=== PATIENT | male | born 1965 | race Caucasian/White ===

== ENCOUNTER 2019-11-10 01:19 | Observation (INO) ==
[2019-11-10 02:00] LABS: Bilirubin,Urine Negative (Negative); Blood,Urine Negative (Negative); Clarity,Urine Cloudy (Clear); Color,Urine Dark Yellow (Yellow); Glucose,Urine (UA) Normal (Normal); Ketones,Urine Negative (Negative); Leukocyte Esterase,Urine Large (Negative); Nitrite,Urine Negative (Negative); Protein,Urine 30 mg/dL (Neg-Trace); Specific Gravity,Urine 1.025 (1.010-1.025); Urobilinogen,Urine Normal (Normal)
[2019-11-10 02:01] LABS: Bacteria,Urine Many per hpf (None-Few); Hyaline Casts,Urine Moderate per lpf (None-Few); Squamous Epithelial Cell,Urine Moderate per lpf (None-Few)
[2019-11-10 02:09] LABS: Basophils % 0.5 %; Eosinophils # 0.1 K/mcL (0.0-0.6); Eosinophils % 0.6 %; Hematocrit 38.1 % (37.5-50.1); Hemoglobin 12.7 g/dL (12.9-16.9); Immature Granulocytes % 1.7 % (0-4); Lymphocytes % 11.7 %; Mean Corpuscular HGB Conc 33.3 g/dL (31.6-35.5); Mean Corpuscular Hemoglobin 29.1 pg (28.0-33.3); Mean Corpuscular Volume 87.2 fL (83.0-100.0); Mean Platelet Volume 9.1 fL (9.4-12.4); Monocytes # 1.1 K/mcL (0.0-1.3); Monocytes % 13.1 %; Neutrophils # 6.1 K/mcL (1.6-8.9); Platelet Count 187 K/mcL (140-400); Red Blood Count 4.37 M/mcL (4.19-5.50); Segmented Neutrophils % 72.4 %; White Blood Count 8.5 K/mcL (4.3-11.1)
[2019-11-10 02:17] LABS: RBC,Urine 0-3 per hpf (0-3); WBC,Urine 30-50 per hpf (0-3)
[2019-11-10 02:22] LABS: Alanine Aminotransferase 17 Units/L (7-52); Albumin 3.4 g/dL (3.5-5.7); Alkaline Phosphatase 84 Units/L (34-104); Aspartate Amino Transferase 16 Units/L (13-39); BUN/Creatinine Ratio 21 (6-26); Bilirubin,Direct 0.2 mg/dL (0.0-0.2); Bilirubin,Indirect 0.4 mg/dL (0.0-1.0); Bilirubin,Total 0.6 mg/dL (0.3-1.0); Blood Urea Nitrogen 23 mg/dL (6-20); Calcium 8.2 mg/dL (8.6-10.3); Carbon Dioxide 23 mEq/L (23-29); Chloride 97 mEq/L (98-107); Globulin 3.4 g/dL (2.4-3.5); Glucose 166 mg/dL (70-105); Osmolality,Calculated 271 (280-300); Potassium 4.3 mEq/L (3.5-5.1); Sodium 127 mEq/L (136-145); Total Protein 6.8 g/dL (6.4-8.9); Troponin I 0.05 ng/mL (< 0.04); eGFR For African Americans > 60 (> 60); eGFR For Non-African Americans > 60 (> 60)
[2019-11-10] MEDS ORDERED: Aspirin 325 MG TABLET PO ONE (02:24)
[2019-11-10] MEDS ORDERED: cefTRIAXone 1,000 MG in Water for inj. (sterile) 10 ML IVP ONE (03:19)
[2019-11-10 04:14] LABS: Sodium, Urine 91.9 mEq/L
[2019-11-10] MEDS ORDERED: Naloxone 0.4 MG/ML INJ IVP PRN (04:51)
[2019-11-10 05:25] LABS: Basophils % 0.5 %; Eosinophils # 0.1 K/mcL (0.0-0.6); Eosinophils % 0.6 %; Hematocrit 38.8 % (37.5-50.1); Hemoglobin 12.7 g/dL (12.9-16.9); Immature Granulocytes % 1.4 % (0-4); Lymphocytes # 0.9 K/mcL (0.6-4.6); Lymphocytes % 11.6 %; Mean Corpuscular HGB Conc 32.7 g/dL (31.6-35.5); Mean Corpuscular Hemoglobin 29.5 pg (28.0-33.3); Mean Corpuscular Volume 90.2 fL (83.0-100.0); Mean Platelet Volume 8.8 fL (9.4-12.4); Monocytes # 1.1 K/mcL (0.0-1.3); Monocytes % 14.1 %; Neutrophils # 5.8 K/mcL (1.6-8.9); Platelet Count 169 K/mcL (140-400); Red Cell Distribution Width 12.9 % (11.5-14.5); Segmented Neutrophils % 71.8 %
[2019-11-10 05:34] LABS: INR 1.2; Prothrombin Time 13.3 Seconds (9.4-12.1)
[2019-11-10 05:46] LABS: Alanine Aminotransferase 17 Units/L (7-52); Albumin 3.5 g/dL (3.5-5.7); Albumin/Globulin Ratio 0.9 (1.1-2.2); Alkaline Phosphatase 88 Units/L (34-104); Aspartate Amino Transferase 18 Units/L (13-39); BUN/Creatinine Ratio 22 (6-26); Bilirubin,Total 0.6 mg/dL (0.3-1.0); Blood Urea Nitrogen 21 mg/dL (6-20); Calcium 8.4 mg/dL (8.6-10.3); Carbon Dioxide 25 mEq/L (23-29); Chloride 96 mEq/L (98-107); Chol/HDL Ratio 6.6 (0-4.9); Cholesterol 165 mg/dL (< 200); Globulin 3.8 g/dL (2.4-3.5); Glucose 128 mg/dL (70-105); HDL Cholesterol 25 mg/dL (40-59); LDL Cholesterol,Calculated 102 mg/dL (0-99); Magnesium 1.7 mg/dL (1.6-2.6); Osmolality,Calculated 273 (280-300); Potassium 4.1 mEq/L (3.5-5.1); Sodium 129 mEq/L (136-145); Total Protein 7.3 g/dL (6.4-8.9); Triglycerides 189 mg/dL (< 150); eGFR For African Americans > 60 (> 60); eGFR For Non-African Americans > 60 (> 60)
[2019-11-10 06:00] LABS: Thyroid Stimulating Hormone 3.902 mcIU/mL (0.340-5.600)
[2019-11-10] MEDS ORDERED: Bisacodyl 10 MG RECTAL SUPPOSITORY RC PRN (07:31)
[2019-11-10] MEDS: Baclofen 10 MG TABLET PO SCH ×4 (11:25→20:00)
[2019-11-10] MEDS: Insulin DETEMIR 100 UNIT/ML X5UNITS SQ SCH ×2 (11:25→20:00)
[2019-11-10] MEDS: Cholecalciferol (D-3) 1,000 UNIT (25MCG) TABLET PO SCH (11:25)
[2019-11-10] MEDS: tiZANidine 4 MG TABLET PO SCH ×3 (11:25→19:59)
[2019-11-10] MEDS: Acetaminophen 325 MG TABLET PO SCH ×4 (11:25→19:59)
[2019-11-10] MEDS: *HR* Heparin 5,000 UNIT/ML VIAL SQ SCH (19:59)
[2019-11-11 00:50] LABS: Hematocrit 37.7 % (37.5-50.1); Hemoglobin 12.6 g/dL (12.9-16.9); Mean Corpuscular HGB Conc 33.4 g/dL (31.6-35.5); Mean Corpuscular Volume 86.7 fL (83.0-100.0); Mean Platelet Volume 8.9 fL (9.4-12.4); Platelet Count 175 K/mcL (140-400); Red Blood Count 4.35 M/mcL (4.19-5.50); Red Cell Distribution Width 12.8 % (11.5-14.5)
[2019-11-11 01:10] LABS: BUN/Creatinine Ratio 18 (6-26); Blood Urea Nitrogen 16 mg/dL (6-20); Calcium 8.4 mg/dL (8.6-10.3); Carbon Dioxide 27 mEq/L (23-29); Chloride 99 mEq/L (98-107); Glucose 161 mg/dL (70-105); Osmolality,Calculated 277 (280-300); Potassium 4.2 mEq/L (3.5-5.1); Sodium 131 mEq/L (136-145); eGFR For African Americans > 60 (> 60); eGFR For Non-African Americans > 60 (> 60)
[2019-11-11] MEDS: *HR* Heparin 5,000 UNIT/ML VIAL SQ SCH ×2 (05:01→17:10)
[2019-11-11 08:10] LABS: Estimated Average Glucose 163 mg/dl
[2019-11-11] MEDS: Baclofen 10 MG TABLET PO SCH ×4 (08:14→21:32)
[2019-11-11] MEDS: Cholecalciferol (D-3) 1,000 UNIT (25MCG) TABLET PO SCH (08:14)
[2019-11-11] MEDS: Acetaminophen 325 MG TABLET PO SCH ×4 (08:14→21:32)
[2019-11-11] MEDS: Insulin DETEMIR 100 UNIT/ML X5UNITS SQ SCH ×2 (08:14→21:31)
[2019-11-11] MEDS: tiZANidine 4 MG TABLET PO SCH ×3 (08:14→21:32)
[2019-11-11] MEDS ORDERED: D5% in Water 1,000 ML IVC PRN (08:54)
[2019-11-11] MEDS ORDERED: Dextrose Gel 15 GM/37.5 ML TUBE PO PRN ×2 (08:54)
[2019-11-11] MEDS ORDERED: *HR* Dextrose 50 % in Water (Syg) 50 ML SYRINGE IVP PRN (08:54)
[2019-11-11] MEDS ORDERED: cefTRIAXone 2,000 MG in 0.9 % Sodium Chloride Mini Bag 100 ML IVPB SCH (09:00)
[2019-11-11] MEDS ORDERED: tiZANidine 4 MG TABLET PO SCH (09:00)
[2019-11-11] MEDS: Insulin LISPRO 300 UNITS/3 ML VIAL SQ SCH ×2 (12:18→17:10)
[2019-11-11] MEDS: cefTRIAXone 2,000 MG in Water for inj. (sterile) 20 ML IVP SCH (12:19)
[2019-11-11] MEDS ORDERED: Insulin LISPRO 300 UNITS/3 ML VIAL SQ SCH (21:00)
[2019-11-12] MEDS: *HR* Heparin 5,000 UNIT/ML VIAL SQ SCH (05:20)
[2019-11-12] MEDS: Acetaminophen 325 MG TABLET PO SCH ×2 (08:16→13:23)
[2019-11-12] MEDS: Insulin LISPRO 300 UNITS/3 ML VIAL SQ SCH ×2 (08:16→11:32)
[2019-11-12] MEDS: tiZANidine 4 MG TABLET PO SCH (08:17)
[2019-11-12] MEDS: Insulin DETEMIR 100 UNIT/ML X5UNITS SQ SCH (08:17)
[2019-11-12] MEDS: Baclofen 10 MG TABLET PO SCH ×2 (08:17→13:23)
[2019-11-12] MEDS: Cholecalciferol (D-3) 1,000 UNIT (25MCG) TABLET PO SCH (08:17)
[2019-11-12] MEDS: cefTRIAXone 2,000 MG in Water for inj. (sterile) 20 ML IVP SCH (08:19)
[2019-11-12 10:48] VITALS: BP 114/74
== END 2019-11-12 13:29 | disposition other institution (70) ==
LOC: 3BNU 01:19 → EMEROOARM 01:19 → 3BNU 04:38
PROVIDERS: ADMIT Family Medicine; ATTEND Family Medicine

== ENCOUNTER 2021-03-04 15:56 | Observation (INO) ==
[2021-03-04 16:53] LABS: Basophils # 0.1 K/mcL (0.0-0.2); Basophils % 0.7 %; Eosinophils # 0.5 K/mcL (0.0-0.6); Eosinophils % 6.1 %; Hematocrit 42.4 % (37.5-50.1); Hemoglobin 13.8 g/dL (12.9-16.9); Lymphocytes # 1.5 K/mcL (0.6-4.6); Lymphocytes % 19.6 %; Mean Corpuscular HGB Conc 32.5 g/dL (31.6-35.5); Mean Corpuscular Hemoglobin 29.4 pg (28.0-33.3); Mean Corpuscular Volume 90.2 fL (83.0-100.0); Mean Platelet Volume 9.3 fL (9.4-12.4); Monocytes # 0.9 K/mcL (0.0-1.3); Monocytes % 11.3 %; Neutrophils # 4.7 K/mcL (1.6-8.9); Platelet Count 212 K/mcL (140-400); Red Cell Distribution Width 12.9 % (11.5-14.5); Segmented Neutrophils % 61.3 %; White Blood Count 7.7 K/mcL (4.3-11.1)
[2021-03-04 17:03] LABS: BUN/Creatinine Ratio 28 (6-26); Blood Urea Nitrogen 19 mg/dL (6-20); Calcium 8.8 mg/dL (8.6-10.3); Carbon Dioxide 24 mEq/L (23-29); Chloride 98 mEq/L (98-107); Glucose 377 mg/dL (70-105); Osmolality,Calculated 286 (280-300); Potassium 4.9 mEq/L (3.5-5.1); Sodium 129 mEq/L (136-145); eGFR For African Americans > 60 (> 60); eGFR For Non-African Americans > 60 (> 60)
[2021-03-04] MEDS ORDERED: Isovue-370 500 ML BOTTLE IVP ONE (17:46)
[2021-03-04] MEDS ORDERED: Naloxone 0.4 MG/ML INJ IVP PRN (20:12)
[2021-03-04] MEDS ORDERED: Melatonin 3 MG TABLET PO PRN (20:12)
[2021-03-04] MEDS ORDERED: Ondansetron 4 MG/2 ML VIAL IVP PRN (20:12)
[2021-03-04] MEDS ORDERED: D5% in Water 1,000 ML IVC PRN (20:29)
[2021-03-04] MEDS ORDERED: Dextrose Gel 15 GM/37.5 ML TUBE PO PRN ×2 (20:29)
[2021-03-04] MEDS ORDERED: *HR* Dextrose 50 % in Water (Vial) 50 ML VIAL IVP PRN (20:29)
[2021-03-04] MEDS: Insulin DETEMIR 100 UNIT/ML X5UNITS SUBQ SCH (22:00)
[2021-03-04] MEDS: *HR* Heparin 5,000 UNIT/ML VIAL SQ SCH (22:00)
[2021-03-04] MEDS: 0.9 % Sodium Chloride 1,000 ML IVC SCH (22:01)
[2021-03-04] MEDS: Insulin LISPRO 300 UNITS/3 ML VIAL SUBQ SCH (22:02)
[2021-03-05] MEDS: Insulin LISPRO 300 UNITS/3 ML VIAL SUBQ SCH ×4 (00:33→17:54)
[2021-03-05 05:47] LABS: Hematocrit 46.3 % (37.5-50.1); Hemoglobin 14.6 g/dL (12.9-16.9); INR 1.1; Mean Corpuscular HGB Conc 31.5 g/dL (31.6-35.5); Mean Corpuscular Hemoglobin 28.9 pg (28.0-33.3); Mean Corpuscular Volume 91.5 fL (83.0-100.0); Mean Platelet Volume 9.3 fL (9.4-12.4); Platelet Count 222 K/mcL (140-400); Prothrombin Time 12.4 Seconds (9.4-12.1); Red Blood Count 5.06 M/mcL (4.19-5.50); Red Cell Distribution Width 12.8 % (11.5-14.5); White Blood Count 7.9 K/mcL (4.3-11.1)
[2021-03-05 05:50] LABS: Activated Partial Thrombo Time 32.6 Seconds (26.0-36.0)
[2021-03-05 05:56] LABS: Estimated Average Glucose 217 mg/dl; Hemoglobin A1C 9.2 %
[2021-03-05] MEDS: *HR* Heparin 5,000 UNIT/ML VIAL SQ SCH ×3 (05:59→22:08)
[2021-03-05 06:19] LABS: BUN/Creatinine Ratio 22 (6-26); Blood Urea Nitrogen 15 mg/dL (6-20); Calcium 9.5 mg/dL (8.6-10.3); Carbon Dioxide 28 mEq/L (23-29); Chloride 98 mEq/L (98-107); Glucose 138 mg/dL (70-105); Osmolality,Calculated 283 (280-300); Sodium 135 mEq/L (136-145); eGFR For African Americans > 60 (> 60); eGFR For Non-African Americans > 60 (> 60)
[2021-03-05] MEDS: 0.9 % Sodium Chloride 1,000 ML IVC SCH ×2 (09:50→17:53)
[2021-03-05] MEDS ORDERED: Acetaminophen 325 MG TABLET PO PRN (15:39)
[2021-03-05] MEDS ORDERED: Bisacodyl 10 MG RECTAL SUPPOSITORY RC PRN (15:39)
[2021-03-05] MEDS: Baclofen 10 MG TABLET PO SCH ×2 (17:09→22:09)
[2021-03-05] MEDS: tiZANidine 4 MG TABLET PO SCH (22:09)
[2021-03-05] MEDS: OLANZapine 5 MG TAB.RAPDIS PO SCH (22:09)
[2021-03-05] MEDS: Patient Taking Own Medication 1 EACH TP SCH (22:10)
[2021-03-05] MEDS: Insulin DETEMIR 100 UNIT/ML X5UNITS SUBQ SCH (22:10)
[2021-03-06] MEDS: Insulin LISPRO 300 UNITS/3 ML VIAL SUBQ SCH ×4 (02:28→18:28)
[2021-03-06] MEDS: 0.9 % Sodium Chloride 1,000 ML IVC SCH ×2 (04:04→14:08)
[2021-03-06] MEDS: *HR* Heparin 5,000 UNIT/ML VIAL SQ SCH ×3 (05:51→21:15)
[2021-03-06] MEDS: Baclofen 10 MG TABLET PO SCH ×4 (10:54→21:15)
[2021-03-06 10:55] LABS: BUN/Creatinine Ratio 19 (6-26); Blood Urea Nitrogen 12 mg/dL (6-20); Calcium 8.9 mg/dL (8.6-10.3); Carbon Dioxide 31 mEq/L (23-29); Chloride 101 mEq/L (98-107); Glucose 140 mg/dL (70-105); Osmolality,Calculated 286 (280-300); Sodium 137 mEq/L (136-145); eGFR For African Americans > 60 (> 60); eGFR For Non-African Americans > 60 (> 60)
[2021-03-06] MEDS: Ascorbic Acid 500 MG TABLET PO SCH (10:55)
[2021-03-06] MEDS: tiZANidine 4 MG TABLET PO SCH ×3 (10:56→21:15)
[2021-03-06] MEDS: Cholecalciferol (D-3) 1,000 UNIT (25MCG) TABLET PO SCH (10:57)
[2021-03-06] MEDS: Patient Taking Own Medication 1 EACH TP SCH ×2 (11:05→21:41)
[2021-03-06] MEDS: Hydrocortisone Acetate 25 MG RECTAL SUPPOSITORY RC SCH (11:06)
[2021-03-06] MEDS: OLANZapine 5 MG TAB.RAPDIS PO SCH (21:15)
[2021-03-06] MEDS: Insulin DETEMIR 100 UNIT/ML X5UNITS SUBQ SCH (21:15)
[2021-03-07] MEDS: 0.9 % Sodium Chloride 1,000 ML IVC SCH (00:27)
[2021-03-07] MEDS: Insulin LISPRO 300 UNITS/3 ML VIAL SUBQ SCH ×3 (00:34→12:26)
[2021-03-07] MEDS: *HR* Heparin 5,000 UNIT/ML VIAL SQ SCH (05:59)
[2021-03-07] MEDS: Ascorbic Acid 500 MG TABLET PO SCH (08:24)
[2021-03-07] MEDS: tiZANidine 4 MG TABLET PO SCH (08:24)
[2021-03-07] MEDS: Cholecalciferol (D-3) 1,000 UNIT (25MCG) TABLET PO SCH (08:24)
[2021-03-07] MEDS: Baclofen 10 MG TABLET PO SCH ×2 (08:25→12:26)
[2021-03-07] MEDS: Hydrocortisone Acetate 25 MG RECTAL SUPPOSITORY RC SCH (08:28)
[2021-03-07] MEDS: Patient Taking Own Medication 1 EACH TP SCH (08:28)
[2021-03-07 11:00] VITALS: BP 109/71
[2021-03-07 12:47] LABS: Adenovirus Not Detected (Not Detect); Bordetella Pertussis Not Detected (Not Detect); Chlamydophila pneumoniae Not Detected (Not Detect); Coronavirus 229E Not Detected (Not Detect); Coronavirus HKU1 Not Detected (Not Detect); Coronavirus NL63 Not Detected (Not Detect); Coronavirus OC43 Not Detected (Not Detect); Human Metapneumovirus Not Detected (Not Detect); Human Rhinovirus/Enterovirus Not Detected (Not Detect); Influenza A Subtype 2009 H1 Not Detected (Not Detect); Influenza B Not Detected (Not Detect); Mycoplasma pneumoniae Not Detected (Not Detect); Parainfluenza Virus 1 Not Detected (Not Detect); Parainfluenza Virus 2 Not Detected (Not Detect); Parainfluenza Virus 3 Not Detected (Not Detect); Parainfluenza Virus 4 Not Detected (Not Detect); Respiratory Syncytial Virus Not Detected (Not Detect); SARS-CoV-2 Not Detected (Not Detect)
== END 2021-03-07 14:23 ==
LOC: 3ANU 15:56 → EMEROOARM 15:56 → SUATTDRO 18:46 → 3ANU 19:45
PROVIDERS: ADMIT Internal Medicine; ATTEND Student in an Organized Health Care Education/Training Program

== ENCOUNTER 2021-03-17 12:42 | Inpatient (IN) ==
[2021-03-17] MEDS ORDERED: Isovue-370 500 ML BOTTLE IVP ONE (13:04)
[2021-03-17] MEDS ORDERED: Piperacillin/Tazobactam 3.375 GM in Water for inj. (sterile) 20 ML IVP ONE (13:05)
[2021-03-17 13:50] LABS: Basophils # 0.1 K/mcL (0.0-0.2); Basophils % 0.5 %; Eosinophils # 0.4 K/mcL (0.0-0.6); Eosinophils % 3.3 %; Hematocrit 45.3 % (37.5-50.1); Hemoglobin 14.9 g/dL (12.9-16.9); Immature Granulocytes % 1.1 % (0-4); Lymphocytes # 1.4 K/mcL (0.6-4.6); Lymphocytes % 12.9 %; Mean Corpuscular HGB Conc 32.9 g/dL (31.6-35.5); Mean Corpuscular Hemoglobin 29.6 pg (28.0-33.3); Mean Corpuscular Volume 89.9 fL (83.0-100.0); Mean Platelet Volume 9.2 fL (9.4-12.4); Monocytes % 8.8 %; Platelet Count 236 K/mcL (140-400); Red Blood Count 5.04 M/mcL (4.19-5.50); Red Cell Distribution Width 12.8 % (11.5-14.5); Segmented Neutrophils % 73.4 %; White Blood Count 10.8 K/mcL (4.3-11.1)
[2021-03-17 14:00] LABS: BUN/Creatinine Ratio 15 (6-26); Blood Urea Nitrogen 11 mg/dL (6-20); Calcium 9.5 mg/dL (8.6-10.3); Carbon Dioxide 33 mEq/L (23-29); Chloride 95 mEq/L (98-107); Glucose 187 mg/dL (70-105); Osmolality,Calculated 282 (280-300); Potassium 4.3 mEq/L (3.5-5.1); Sodium 134 mEq/L (136-145); eGFR For African Americans > 60 (> 60); eGFR For Non-African Americans > 60 (> 60)
[2021-03-17] MEDS ORDERED: Naloxone 0.4 MG/ML INJ IVP PRN (15:46)
[2021-03-17] MEDS ORDERED: Dextrose Gel 15 GM/37.5 ML TUBE PO PRN ×2 (16:23)
[2021-03-17] MEDS ORDERED: *HR* Dextrose 50 % in Water (Vial) 50 ML VIAL IVP PRN (16:23)
[2021-03-17] MEDS ORDERED: D5% in Water 1,000 ML IVC PRN (16:23)
[2021-03-17] MEDS: Insulin LISPRO 300 UNITS/3 ML VIAL SUBQ SCH (17:36)
[2021-03-17] MEDS ORDERED: Insulin LISPRO 300 UNITS/3 ML VIAL SUBQ SCH (21:00)
[2021-03-17] MEDS: Piperacillin/Tazobactam 3.375 GM in 0.9 % Sodium Chloride Mini Bag 100 ML IVPB SCH (23:38)
[2021-03-18] MEDS: Piperacillin/Tazobactam 3.375 GM in 0.9 % Sodium Chloride Mini Bag 100 ML IVPB SCH ×4 (04:16→23:10)
[2021-03-18] MEDS: Vancomycin 1,750 MG/517.5 ML IV.SOLN IVPB SCH ×2 (04:17→22:25)
[2021-03-18 06:56] LABS: Basophils # 0.1 K/mcL (0.0-0.2); Basophils % 0.6 %; Eosinophils # 0.4 K/mcL (0.0-0.6); Eosinophils % 4.1 %; Hematocrit 43.3 % (37.5-50.1); Hemoglobin 14.3 g/dL (12.9-16.9); Immature Granulocytes % 1.5 % (0-4); Lymphocytes # 1.1 K/mcL (0.6-4.6); Lymphocytes % 12.3 %; Mean Corpuscular Hemoglobin 29.5 pg (28.0-33.3); Mean Corpuscular Volume 89.3 fL (83.0-100.0); Mean Platelet Volume 9.2 fL (9.4-12.4); Monocytes # 0.8 K/mcL (0.0-1.3); Monocytes % 9.1 %; Neutrophils # 6.3 K/mcL (1.6-8.9); Platelet Count 242 K/mcL (140-400); Red Blood Count 4.85 M/mcL (4.19-5.50); Red Cell Distribution Width 12.7 % (11.5-14.5); Segmented Neutrophils % 72.4 %; White Blood Count 8.8 K/mcL (4.3-11.1)
[2021-03-18] MEDS: Insulin LISPRO 300 UNITS/3 ML VIAL SUBQ SCH ×3 (07:12→15:26)
[2021-03-18 07:29] LABS: BUN/Creatinine Ratio 15 (6-26); Blood Urea Nitrogen 10 mg/dL (6-20); Calcium 8.9 mg/dL (8.6-10.3); Carbon Dioxide 26 mEq/L (23-29); Chloride 97 mEq/L (98-107); Glucose 240 mg/dL (70-105); Osmolality,Calculated 279 (280-300); Potassium 4.1 mEq/L (3.5-5.1); Sodium 131 mEq/L (136-145); eGFR For African Americans > 60 (> 60); eGFR For Non-African Americans > 60 (> 60)
[2021-03-18] MEDS ORDERED: Ondansetron 4 MG/2 ML VIAL IVP PRN (13:35)
[2021-03-18] MEDS ORDERED: SODIUM CHLORIDE IR ONE ×2 (16:00→21:49)
[2021-03-18] MEDS ORDERED: VANCOMYCIN IR ONE ×2 (16:00→21:49)
[2021-03-18] MEDS ORDERED: *HR* Propofol 200 MG/20 ML VIAL IVP ONE (16:21)
[2021-03-18] MEDS ORDERED: *HR* Midazolam HCl 2 MG/2 ML VIAL ONE (16:21)
[2021-03-18] MEDS ORDERED: *HR* FentaNYL (PF) 100 MCG/2 ML VIAL ONE (16:21)
[2021-03-18] MEDS ORDERED: Lidocaine HCL 4 ML Topical Solution (Laryng-O-Jet Kit Sterile Pak) TP ONE (16:22)
[2021-03-18] MEDS ORDERED: Ondansetron 4 MG/2 ML VIAL ONE (16:22)
[2021-03-18] MEDS ORDERED: Lidocaine -MPF 2% 2 ML VIAL ONE ×2 (16:22→19:03)
[2021-03-18] MEDS ORDERED: *HR* Rocuronium Bromide 50 MG/5 ML VIAL ONE ×2 (16:22→18:00)
[2021-03-18] MEDS ORDERED: *HR* FentaNYL (PF) 100 MCG/2 ML VIAL IVP PRN (16:51)
[2021-03-18] MEDS ORDERED: *HR* HYDROmorphone (PF) 1 MG/ML SYRINGE IVP PRN (16:51)
[2021-03-18] MEDS ORDERED: Nitroglycerin 0.4 MG TAB.SUBL SL PRN (16:51)
[2021-03-18] MEDS ORDERED: Albuterol 2.5 MG/3 ML NEBULIZER IH PRN (16:51)
[2021-03-18] MEDS ORDERED: Naloxone 0.4 MG/ML INJ IVP PRN ×2 (16:51→21:49)
[2021-03-18] MEDS ORDERED: *HR* Phenylephrine 10 MG/ML VIAL ONE (17:26)
[2021-03-18] MEDS ORDERED: Insulin LISPRO 300 UNITS/3 ML VIAL SUBQ SCH (18:00)
[2021-03-18] MEDS ORDERED: *HR* Heparin 5,000 UNIT/ML VIAL SQ SCH (18:00)
[2021-03-18] MEDS ORDERED: *HR* HYDROMORPHONE 2 MG/ML VIAL ONE (20:00)
[2021-03-18] MEDS ORDERED: *HR* Labetalol 20 MG/4 ML SYRINGE IVP ONE (21:00)
[2021-03-18] MEDS ORDERED: Dextrose Gel 15 GM/37.5 ML TUBE PO PRN ×2 (21:49)
[2021-03-18] MEDS ORDERED: *HR* Dextrose 50 % in Water (Vial) 50 ML VIAL IVP PRN (21:49)
[2021-03-18] MEDS ORDERED: D5% in Water 1,000 ML IVC PRN (21:49)
[2021-03-19] MEDS: Insulin LISPRO 300 UNITS/3 ML VIAL SUBQ SCH ×4 (00:06→17:34)
[2021-03-19] MEDS: Ondansetron 4 MG/2 ML VIAL IVP PRN ×3 (02:02→20:55)
[2021-03-19 03:36] LABS: Hematocrit 43.5 % (37.5-50.1); Hemoglobin 14.3 g/dL (12.9-16.9); Mean Corpuscular HGB Conc 32.9 g/dL (31.6-35.5); Mean Corpuscular Hemoglobin 29.9 pg (28.0-33.3); Mean Platelet Volume 8.9 fL (9.4-12.4); Platelet Count 240 K/mcL (140-400); Red Blood Count 4.78 M/mcL (4.19-5.50); Red Cell Distribution Width 12.9 % (11.5-14.5)
[2021-03-19 03:38] LABS: White Blood Count 16.9 K/mcL (4.3-11.1)
[2021-03-19 03:58] LABS: BUN/Creatinine Ratio 14 (6-26); Blood Urea Nitrogen 16 mg/dL (6-20); Calcium 8.5 mg/dL (8.6-10.3); Carbon Dioxide 28 mEq/L (23-29); Chloride 96 mEq/L (98-107); Glucose 349 mg/dL (70-105); Osmolality,Calculated 291 (280-300); Potassium 4.8 mEq/L (3.5-5.1); Sodium 133 mEq/L (136-145); eGFR For African Americans > 60 (> 60); eGFR For Non-African Americans > 60 (> 60)
[2021-03-19] MEDS ORDERED: Piperacillin/Tazobactam 3.375 GM in 0.9 % Sodium Chloride Mini Bag 100 ML IVPB SCH (04:00)
[2021-03-19] MEDS ORDERED: Vancomycin 1,750 MG/517.5 ML IV.SOLN IVPB SCH (04:00)
[2021-03-19] MEDS: *HR* Heparin 5,000 UNIT/ML VIAL SQ SCH ×2 (05:25→16:48)
[2021-03-19] MEDS ORDERED: Prochlorperazine 10 MG/2 ML VIAL IVP PRN ×2 (07:45→14:00)
[2021-03-19] MEDS: Piperacillin/Tazobactam 3.375 GM in 0.9 % Sodium Chloride Mini Bag 100 ML IVPB SCH ×2 (08:10→16:13)
[2021-03-19] MEDS: Baclofen 10 MG TABLET PO SCH ×4 (08:15→20:42)
[2021-03-19] MEDS ORDERED: Baclofen 10 MG TABLET PO SCH (09:00)
[2021-03-19] MEDS ORDERED: Metoclopramide 10 MG/2 ML VIAL IVP PRN (14:09)
[2021-03-19] MEDS ORDERED: Vancomycin 1,250 MG/262.5 ML IV.SOLN IVPB ONE (20:00)
[2021-03-20] MEDS: Insulin LISPRO 300 UNITS/3 ML VIAL SUBQ SCH ×4 (00:06→22:05)
[2021-03-20] MEDS: Piperacillin/Tazobactam 3.375 GM in 0.9 % Sodium Chloride Mini Bag 100 ML IVPB SCH ×3 (00:08→17:14)
[2021-03-20] MEDS: *HR* Heparin 5,000 UNIT/ML VIAL SQ SCH (06:11)
[2021-03-20 07:31] LABS: Basophils % 0.2 %; Eosinophils % 0.1 %; Hematocrit 42.6 % (37.5-50.1); Hemoglobin 13.3 g/dL (12.9-16.9); Immature Granulocytes % 0.8 % (0-4); Lymphocytes # 1.1 K/mcL (0.6-4.6); Lymphocytes % 6.2 %; Mean Corpuscular HGB Conc 31.2 g/dL (31.6-35.5); Mean Corpuscular Hemoglobin 28.8 pg (28.0-33.3); Mean Corpuscular Volume 92.2 fL (83.0-100.0); Mean Platelet Volume 9.3 fL (9.4-12.4); Monocytes # 1.6 K/mcL (0.0-1.3); Monocytes % 9.5 %; Neutrophils # 14.2 K/mcL (1.6-8.9); Platelet Count 284 K/mcL (140-400); Red Blood Count 4.62 M/mcL (4.19-5.50); Segmented Neutrophils % 83.2 %; White Blood Count 17.1 K/mcL (4.3-11.1)
[2021-03-20 07:56] LABS: Calcium 8.7 mg/dL (8.6-10.3); Potassium 3.5 mEq/L (3.5-5.1)
[2021-03-20] MEDS: Baclofen 10 MG TABLET PO SCH ×4 (09:24→22:23)
[2021-03-20] MEDS: 0.9 % Sodium Chloride 1,000 ML IVC SCH ×2 (14:29→22:01)
[2021-03-20] MEDS: Pantoprazole 40 MG VIAL IVP SCH (17:15)
[2021-03-21] MEDS: Piperacillin/Tazobactam 3.375 GM in 0.9 % Sodium Chloride Mini Bag 100 ML IVPB SCH ×3 (00:33→16:25)
[2021-03-21] MEDS: Insulin LISPRO 300 UNITS/3 ML VIAL SUBQ SCH ×4 (00:34→18:51)
[2021-03-21 05:15] LABS: Basophils % 0.1 %; Eosinophils % 0.1 %; Hematocrit 39.4 % (37.5-50.1); Hemoglobin 12.2 g/dL (12.9-16.9); Immature Granulocytes % 0.7 % (0-4); Lymphocytes # 1.2 K/mcL (0.6-4.6); Lymphocytes % 8.6 %; Mean Corpuscular Hemoglobin 28.8 pg (28.0-33.3); Mean Corpuscular Volume 93.1 fL (83.0-100.0); Monocytes # 1.3 K/mcL (0.0-1.3); Monocytes % 9.3 %; Neutrophils # 11.3 K/mcL (1.6-8.9); Platelet Count 269 K/mcL (140-400); Red Blood Count 4.23 M/mcL (4.19-5.50); Red Cell Distribution Width 13.2 % (11.5-14.5); Segmented Neutrophils % 81.2 %; White Blood Count 13.9 K/mcL (4.3-11.1)
[2021-03-21] MEDS: Pantoprazole 40 MG VIAL IVP SCH ×2 (06:13→16:22)
[2021-03-21] MEDS: Baclofen 10 MG TABLET PO SCH ×4 (07:36→21:40)
[2021-03-21] MEDS ORDERED: Potassium Chloride 40 MEQ, Lidocaine 1% 2 ML in 0.9 % Sodium Chloride 500 ML IVPB ONE (08:40)
[2021-03-22] MEDS: Piperacillin/Tazobactam 3.375 GM in 0.9 % Sodium Chloride Mini Bag 100 ML IVPB SCH ×3 (00:30→16:59)
[2021-03-22] MEDS: Insulin LISPRO 300 UNITS/3 ML VIAL SUBQ SCH ×5 (00:31→18:57)
[2021-03-22 02:08] LABS: Basophils % 0.3 %; Eosinophils # 0.1 K/mcL (0.0-0.6); Eosinophils % 0.6 %; Hematocrit 39.4 % (37.5-50.1); Hemoglobin 12.1 g/dL (12.9-16.9); Immature Granulocytes % 0.6 % (0-4); Lymphocytes # 0.9 K/mcL (0.6-4.6); Lymphocytes % 8.5 %; Mean Corpuscular HGB Conc 30.7 g/dL (31.6-35.5); Mean Corpuscular Hemoglobin 29.4 pg (28.0-33.3); Mean Corpuscular Volume 95.9 fL (83.0-100.0); Mean Platelet Volume 9.1 fL (9.4-12.4); Monocytes # 0.9 K/mcL (0.0-1.3); Monocytes % 8.1 %; Neutrophils # 8.9 K/mcL (1.6-8.9); Platelet Count 273 K/mcL (140-400); Red Blood Count 4.11 M/mcL (4.19-5.50); Red Cell Distribution Width 13.2 % (11.5-14.5); Segmented Neutrophils % 81.9 %; White Blood Count 10.9 K/mcL (4.3-11.1)
[2021-03-22 02:28] LABS: Calcium 7.8 mg/dL (8.6-10.3); Potassium 3.4 mEq/L (3.5-5.1)
[2021-03-22] MEDS: Pantoprazole 40 MG VIAL IVP SCH (05:39)
[2021-03-22] MEDS: Baclofen 10 MG TABLET PO SCH ×4 (08:29→21:35)
[2021-03-22] MEDS ORDERED: 0.9 % Sodium Chloride 1,000 ML IVC SCH (12:00)
[2021-03-22] MEDS ORDERED: Vancomycin 1,250 MG/262.5 ML IV.SOLN IVPB ONE (15:32)
[2021-03-22 16:17] LABS: ABG Base Excess 6 mEq/L (-2 to 3); ABG HCO3 32 mEq/L (21-27); ABG Oxygen Saturation 93 % (95-98); ABG PCO2 51 mmHg (35-45); ABG PO2 67 mmHg (85-104); ABG TCO2 33 mEq/L (20-26)
[2021-03-22] MEDS ORDERED: Furosemide 40 MG/4 ML VIAL IVP ONE (16:37)
[2021-03-22] MEDS: *HR* Heparin 5,000 UNIT/ML VIAL SQ SCH (17:29)
[2021-03-22] MEDS ORDERED: Furosemide 20 MG/2 ML VIAL IVP ONE (18:41)
[2021-03-22 19:21] LABS: Basophils % 0.3 %; Eosinophils # 0.3 K/mcL (0.0-0.6); Eosinophils % 2.6 %; Hematocrit 37.3 % (37.5-50.1); Hemoglobin 11.3 g/dL (12.9-16.9); Immature Granulocytes % 0.6 % (0-4); Lymphocytes # 1.2 K/mcL (0.6-4.6); Lymphocytes % 11.9 %; Mean Corpuscular HGB Conc 30.3 g/dL (31.6-35.5); Mean Corpuscular Volume 95.6 fL (83.0-100.0); Mean Platelet Volume 9.1 fL (9.4-12.4); Monocytes # 0.8 K/mcL (0.0-1.3); Neutrophils # 7.5 K/mcL (1.6-8.9); Platelet Count 265 K/mcL (140-400); Red Cell Distribution Width 13.3 % (11.5-14.5); Segmented Neutrophils % 76.6 %; White Blood Count 9.8 K/mcL (4.3-11.1)
[2021-03-22 19:36] LABS: Calcium 7.3 mg/dL (8.6-10.3); Potassium 3.1 mEq/L (3.5-5.1)
[2021-03-22 23:35] LABS: ABG Base Excess 5 mEq/L (-2 to 3); ABG HCO3 31 mEq/L (21-27); ABG Oxygen Saturation 95 % (95-98); ABG PCO2 54 mmHg (35-45); ABG PH 7.37 pH Units (7.32-7.45); ABG PO2 80 mmHg (85-104); ABG TCO2 33 mEq/L (20-26)
[2021-03-23] MEDS: Insulin DETEMIR 100 UNIT/ML X5UNITS SUBQ SCH ×2 (00:16→20:18)
[2021-03-23 00:25] LABS: Calcium 7.4 mg/dL (8.6-10.3); Potassium 3.3 mEq/L (3.5-5.1)
[2021-03-23 00:26] LABS: Albumin/Globulin Ratio 0.7 (1.1-2.2); Bilirubin,Direct 0.2 mg/dL (0.0-0.2); Bilirubin,Indirect 0.4 mg/dL (0.0-1.0); Bilirubin,Total 0.6 mg/dL (0.3-1.0); Globulin 4.1 g/dL (2.4-3.5); Total Protein 7.1 g/dL (6.4-8.9)
[2021-03-23] MEDS: OLANZapine 10 MG VIAL IM SCH ×2 (02:06→20:18)
[2021-03-23 02:37] LABS: Basophils % 0.3 %; Eosinophils # 0.3 K/mcL (0.0-0.6); Hematocrit 39.6 % (37.5-50.1); Hemoglobin 11.7 g/dL (12.9-16.9); Immature Granulocytes % 0.7 % (0-4); Lymphocytes # 1.1 K/mcL (0.6-4.6); Lymphocytes % 12.4 %; Mean Corpuscular HGB Conc 29.5 g/dL (31.6-35.5); Mean Corpuscular Hemoglobin 28.7 pg (28.0-33.3); Mean Corpuscular Volume 97.1 fL (83.0-100.0); Mean Platelet Volume 10.2 fL (9.4-12.4); Monocytes # 0.8 K/mcL (0.0-1.3); Monocytes % 9.5 %; Neutrophils # 6.5 K/mcL (1.6-8.9); Platelet Count 288 K/mcL (140-400); Red Blood Count 4.08 M/mcL (4.19-5.50); Red Cell Distribution Width 13.3 % (11.5-14.5); Segmented Neutrophils % 74.1 %; White Blood Count 8.8 K/mcL (4.3-11.1)
[2021-03-23 03:46] LABS: Calcium 7.6 mg/dL (8.6-10.3); Potassium 3.5 mEq/L (3.5-5.1)
[2021-03-23] MEDS: *HR* Heparin 5,000 UNIT/ML VIAL SQ SCH ×2 (05:58→17:12)
[2021-03-23] MEDS: Baclofen 10 MG TABLET PO SCH ×4 (07:56→20:19)
[2021-03-23] MEDS: Pantoprazole 40 MG VIAL IVP SCH (08:34)
[2021-03-23] MEDS: Insulin LISPRO 300 UNITS/3 ML VIAL SUBQ SCH ×3 (08:34→11:40)
[2021-03-23] MEDS ORDERED: polyethylene glycoL 3350 17 GM POWD.PACK PO ONE (09:08)
[2021-03-23] MEDS ORDERED: OLANZapine 10 MG VIAL IM ONE (14:42)
[2021-03-23] MEDS ORDERED: Acetaminophen IV 1,000 MG/100 ML BAG IVPB PRN (15:22)
[2021-03-24] MEDS: *HR* Heparin 5,000 UNIT/ML VIAL SQ SCH ×2 (05:25→17:33)
[2021-03-24 06:11] LABS: Basophils # 0.1 K/mcL (0.0-0.2); Basophils % 0.9 %; Eosinophils # 0.3 K/mcL (0.0-0.6); Eosinophils % 3.2 %; Hematocrit 41.4 % (37.5-50.1); Hemoglobin 12.6 g/dL (12.9-16.9); Immature Granulocytes % 2.2 % (0-4); Lymphocytes # 1.2 K/mcL (0.6-4.6); Lymphocytes % 12.7 %; Mean Corpuscular HGB Conc 30.4 g/dL (31.6-35.5); Mean Corpuscular Hemoglobin 28.5 pg (28.0-33.3); Mean Corpuscular Volume 93.7 fL (83.0-100.0); Monocytes # 0.9 K/mcL (0.0-1.3); Monocytes % 9.5 %; Neutrophils # 6.7 K/mcL (1.6-8.9); Platelet Count 271 K/mcL (140-400); Red Blood Count 4.42 M/mcL (4.19-5.50); Red Cell Distribution Width 13.1 % (11.5-14.5); Segmented Neutrophils % 71.5 %; White Blood Count 9.3 K/mcL (4.3-11.1)
[2021-03-24 06:28] LABS: Calcium 7.7 mg/dL (8.6-10.3); Potassium 3.3 mEq/L (3.5-5.1)
[2021-03-24] MEDS: Pantoprazole 40 MG VIAL IVP SCH (08:26)
[2021-03-24] MEDS: Baclofen 10 MG TABLET PO SCH ×3 (08:27→17:33)
[2021-03-24] MEDS: Insulin LISPRO 300 UNITS/3 ML VIAL SUBQ SCH ×3 (09:25→17:33)
[2021-03-24] MEDS ORDERED: *HR* Labetalol 20 MG/4 ML SYRINGE IVP ONE (20:17)
[2021-03-24] MEDS: OLANZapine 5 MG TAB.RAPDIS PO SCH (21:23)
[2021-03-24] MEDS: *HR* LORazepam Oral Conc 2 MG/ML SL SCH (21:24)
[2021-03-24] MEDS: Insulin DETEMIR 100 UNIT/ML X5UNITS SUBQ SCH (21:24)
[2021-03-25] MEDS ORDERED: *HR* Metoprolol 5 MG/5 ML VIAL IVP PRN (02:00)
[2021-03-25 05:12] LABS: Hematocrit 40.4 % (37.5-50.1); Hemoglobin 12.6 g/dL (12.9-16.9); Mean Corpuscular HGB Conc 31.2 g/dL (31.6-35.5); Mean Corpuscular Volume 92.9 fL (83.0-100.0); Mean Platelet Volume 10.5 fL (9.4-12.4); Platelet Count 203 K/mcL (140-400); Red Blood Count 4.35 M/mcL (4.19-5.50); Red Cell Distribution Width 13.2 % (11.5-14.5); White Blood Count 9.5 K/mcL (4.3-11.1)
[2021-03-25 05:33] LABS: BUN/Creatinine Ratio 18 (6-26); Blood Urea Nitrogen 24 mg/dL (6-20); Calcium 7.6 mg/dL (8.6-10.3); Carbon Dioxide 25 mEq/L (23-29); Chloride 108 mEq/L (98-107); Glucose 248 mg/dL (70-105); Osmolality,Calculated 306 (280-300); Potassium 3.1 mEq/L (3.5-5.1); Sodium 142 mEq/L (136-145); eGFR For African Americans > 60 (> 60); eGFR For Non-African Americans 56 (> 60)
[2021-03-25] MEDS: *HR* Heparin 5,000 UNIT/ML VIAL SQ SCH ×2 (05:49→16:43)
[2021-03-25] MEDS: Pantoprazole 40 MG VIAL IVP SCH (08:44)
[2021-03-25] MEDS: *HR* LORazepam Oral Conc 2 MG/ML SL SCH ×3 (08:44→21:34)
[2021-03-25] MEDS: Baclofen 10 MG TABLET PO SCH ×4 (08:44→21:34)
[2021-03-25] MEDS: Insulin LISPRO 300 UNITS/3 ML VIAL SUBQ SCH ×3 (08:47→16:42)
[2021-03-25 12:26] LABS: Adenovirus Not Detected (Not Detect); Bordetella Pertussis Not Detected (Not Detect); Chlamydophila pneumoniae Not Detected (Not Detect); Coronavirus 229E Not Detected (Not Detect); Coronavirus HKU1 Not Detected (Not Detect); Coronavirus NL63 Not Detected (Not Detect); Coronavirus OC43 Not Detected (Not Detect); Human Metapneumovirus Not Detected (Not Detect); Human Rhinovirus/Enterovirus Not Detected (Not Detect); Influenza A Subtype 2009 H1 Not Detected (Not Detect); Influenza B Not Detected (Not Detect); Mycoplasma pneumoniae Not Detected (Not Detect); Parainfluenza Virus 1 Not Detected (Not Detect); Parainfluenza Virus 2 Not Detected (Not Detect); Parainfluenza Virus 3 Not Detected (Not Detect); Parainfluenza Virus 4 Not Detected (Not Detect); Respiratory Syncytial Virus Not Detected (Not Detect); SARS-CoV-2 Not Detected (Not Detect)
[2021-03-25] MEDS ORDERED: Insulin DETEMIR 100 UNIT/ML X5UNITS SUBQ SCH (21:00)
[2021-03-25] MEDS: OLANZapine 5 MG TAB.RAPDIS PO SCH (21:34)
[2021-03-26 03:00] LABS: BUN/Creatinine Ratio 21 (6-26); Blood Urea Nitrogen 28 mg/dL (6-20); Calcium 7.8 mg/dL (8.6-10.3); Carbon Dioxide 24 mEq/L (23-29); Chloride 107 mEq/L (98-107); Glucose 289 mg/dL (70-105); Osmolality,Calculated 304 (280-300); Potassium 3.7 mEq/L (3.5-5.1); Sodium 139 mEq/L (136-145); eGFR For African Americans > 60 (> 60); eGFR For Non-African Americans 55 (> 60)
[2021-03-26] MEDS: *HR* Heparin 5,000 UNIT/ML VIAL SQ SCH (06:51)
[2021-03-26 07:29] VITALS: BP 129/74
[2021-03-26] MEDS: Baclofen 10 MG TABLET PO SCH (08:01)
[2021-03-26] MEDS: *HR* LORazepam Oral Conc 2 MG/ML SL SCH (08:01)
[2021-03-26] MEDS: Insulin LISPRO 300 UNITS/3 ML VIAL SUBQ SCH (08:03)
== END 2021-03-26 09:39 | DRG 329 ==
LOC: 3BNU 12:42 → EMEROOARM 12:42 → SUATTDRO 16:06 → 3BNU 16:36 → SUATTDRO 03-18 16:51 → 3ANU 03-20 18:13
PROVIDERS: ADMIT Internal Medicine; ATTEND Internal Medicine

== ENCOUNTER 2021-03-26 13:44 | Inpatient (IN) ==
[2021-03-26 14:35] LABS: Amphetamine Screen,Urine Negative ng/mL (Cutoff=1000); Barbiturate Screen,Urine Negative ng/mL (Cutoff=200); Benzodiazepines Screen,Urine Negative ng/mL (Cutoff=200); Cannabinoid Screen,Urine Negative ng/mL (Cutoff = 50); Cocaine Screen,Urine Negative ng/mL (Cutoff= 300); Opiate Screen,Urine Negative ng/mL (Cutoff=300); Phencyclidine Screen,Urine Negative ng/mL (Cutoff=25)
[2021-03-26 14:41] LABS: Eosinophils # 0.3 K/mcL (0.0-0.6); Hematocrit 39.8 % (37.5-50.1); Hemoglobin 12.6 g/dL (12.9-16.9); Immature Platelets 4.3 % (1.1-6.1); Mean Corpuscular HGB Conc 31.7 g/dL (31.6-35.5); Mean Corpuscular Hemoglobin 29.3 pg (28.0-33.3); Mean Corpuscular Volume 92.6 fL (83.0-100.0); Mean Platelet Volume 11.7 fL (9.4-12.4); Platelet Count 259 K/mcL (140-400); Red Cell Distribution Width 13.3 % (11.5-14.5); White Blood Count 9.1 K/mcL (4.3-11.1)
[2021-03-26 14:48] LABS: Alanine Aminotransferase 10 Units/L (7-52); Albumin 2.7 g/dL (3.5-5.7); Albumin/Globulin Ratio 0.8 (1.1-2.2); Alkaline Phosphatase 77 Units/L (34-104); Aspartate Amino Transferase 13 Units/L (13-39); BUN/Creatinine Ratio 16 (6-26); Bacteria,Urine Few per hpf (None-Few); Bilirubin,Direct 0.1 mg/dL (0.0-0.2); Bilirubin,Indirect 0.3 mg/dL (0.0-1.0); Bilirubin,Total 0.4 mg/dL (0.3-1.0); Bilirubin,Urine Negative (Negative); Blood Urea Nitrogen 23 mg/dL (6-20); Blood,Urine Large (Negative); Budding Yeast,Urine Few per hpf (None Seen); Calcium 7.9 mg/dL (8.6-10.3); Carbon Dioxide 27 mEq/L (23-29); Chloride 106 mEq/L (98-107); Clarity,Urine Turbid (Clear); Color,Urine Light-Orange (Yellow); Ethanol < 10 mg/dL (Less than 10); Globulin 3.6 g/dL (2.4-3.5); Glucose 222 mg/dL (70-105); Glucose,Urine (UA) Normal (Normal); Ketones,Urine Negative (Negative); Leukocyte Esterase,Urine Large (Negative); Nitrite,Urine Negative (Negative); Osmolality,Calculated 301 (280-300); PH,Urine 6.5 pH Units (5.0-8.0); Potassium 3.6 mEq/L (3.5-5.1); Protein,Urine 30 mg/dL (Neg-Trace); RBC,Urine TNTC per hpf (0-3); Sodium 140 mEq/L (136-145); Total Protein 6.3 g/dL (6.4-8.9); Troponin I < 0.03 ng/mL (< 0.04); Urobilinogen,Urine Normal (Normal); WBC,Urine TNTC per hpf (0-3); eGFR For African Americans > 60 (> 60); eGFR For Non-African Americans 51 (> 60)
[2021-03-26 15:05] LABS: Acetaminophen < 10 mcg/mL (10-20); Chol/HDL Ratio 9.8 (0-4.9); Cholesterol 167 mg/dL (< 200); HDL Cholesterol 17 mg/dL (40-59); LDL Cholesterol,Calculated 84 mg/dL (< 100); Salicylate < 2.5 mg/dL (15.0-30.0); Triglycerides 330 mg/dL (< 150)
[2021-03-26] MEDS ORDERED: 0.9 % Sodium Chloride 1,000 ML IVC ONE (15:20)
[2021-03-26] MEDS ORDERED: 0.9 % Sodium Chloride 500 ML IVC STA (15:23)
[2021-03-26 16:02] LABS: Lymphocytes # 0.8 K/mcL (0.6-4.6); Monocytes # 1.2 K/mcL (0.0-1.3); Neutrophils # 6.8 K/mcL (1.6-8.9); Platelet Estimate Normal (Normal)
[2021-03-26 17:27] LABS: Adenovirus Not Detected (Not Detect); Bordetella Pertussis Not Detected (Not Detect); Chlamydophila pneumoniae Not Detected (Not Detect); Coronavirus 229E Not Detected (Not Detect); Coronavirus HKU1 Not Detected (Not Detect); Coronavirus NL63 Not Detected (Not Detect); Coronavirus OC43 Not Detected (Not Detect); Human Metapneumovirus Not Detected (Not Detect); Human Rhinovirus/Enterovirus Not Detected (Not Detect); Influenza A Subtype 2009 H1 Not Detected (Not Detect); Influenza B Not Detected (Not Detect); Mycoplasma pneumoniae Not Detected (Not Detect); Parainfluenza Virus 1 Not Detected (Not Detect); Parainfluenza Virus 2 Not Detected (Not Detect); Parainfluenza Virus 3 Not Detected (Not Detect); Parainfluenza Virus 4 Not Detected (Not Detect); Respiratory Syncytial Virus Not Detected (Not Detect); SARS-CoV-2 Not Detected (Not Detect)
[2021-03-26 19:01] LABS: Estimated Average Glucose 226 mg/dl; Hemoglobin A1C 9.5 %
[2021-03-26] MEDS ORDERED: Isovue-370 500 ML BOTTLE IVP ONE (20:45)
[2021-03-27] MEDS ORDERED: Ondansetron 4 MG/2 ML VIAL IVP PRN ×3 (00:39→12:36)
[2021-03-27] MEDS ORDERED: Melatonin 3 MG TABLET PO PRN ×2 (00:39→12:36)
[2021-03-27] MEDS ORDERED: Naloxone 0.4 MG/ML INJ IVP PRN ×2 (00:39→12:36)
[2021-03-27 05:25] LABS: Hemoglobin 11.7 g/dL (12.9-16.9); Red Cell Distribution Width 13.3 % (11.5-14.5)
[2021-03-27 05:27] LABS: Basophils # 0.1 K/mcL (0.0-0.2); Basophils % 1.1 %; Eosinophils # 0.2 K/mcL (0.0-0.6); Eosinophils % 3.3 %; Hematocrit 38.2 % (37.5-50.1); Immature Granulocytes % 5.9 % (0-4); Immature Platelets 4.1 % (1.1-6.1); Lymphocytes % 15.4 %; Mean Corpuscular HGB Conc 30.6 g/dL (31.6-35.5); Mean Corpuscular Hemoglobin 28.3 pg (28.0-33.3); Mean Corpuscular Volume 92.3 fL (83.0-100.0); Mean Platelet Volume 10.4 fL (9.4-12.4); Monocytes % 11.6 %; Platelet Count 217 K/mcL (140-400); Red Blood Count 4.14 M/mcL (4.19-5.50); Segmented Neutrophils % 62.7 %; White Blood Count 6.4 K/mcL (4.3-11.1)
[2021-03-27 05:37] LABS: INR 1.2; Prothrombin Time 13.9 Seconds (9.4-12.1)
[2021-03-27 05:38] LABS: Monocytes # 0.7 K/mcL (0.0-1.3)
[2021-03-27 05:40] LABS: Activated Partial Thrombo Time 28.2 Seconds (26.0-36.0)
[2021-03-27 05:45] LABS: Alanine Aminotransferase 8 Units/L (7-52); Albumin 2.8 g/dL (3.5-5.7); Albumin/Globulin Ratio 0.8 (1.1-2.2); Alkaline Phosphatase 78 Units/L (34-104); Aspartate Amino Transferase 12 Units/L (13-39); BUN/Creatinine Ratio 15 (6-26); Bilirubin,Total 0.4 mg/dL (0.3-1.0); Blood Urea Nitrogen 20 mg/dL (6-20); Calcium 7.7 mg/dL (8.6-10.3); Chloride 106 mEq/L (98-107); Globulin 3.3 g/dL (2.4-3.5); Glucose 262 mg/dL (70-105); Magnesium 1.8 mg/dL (1.6-2.6); Osmolality,Calculated 296 (280-300); Potassium 3.4 mEq/L (3.5-5.1); Sodium 137 mEq/L (136-145); Total Protein 6.1 g/dL (6.4-8.9); eGFR For African Americans > 60 (> 60); eGFR For Non-African Americans 55 (> 60)
[2021-03-27 06:16] LABS: Carbon Dioxide 22 mEq/L (23-29)
[2021-03-27 06:26] LABS: Platelet Estimate Normal (Normal)
[2021-03-27] MEDS ORDERED: D5% in Water 1,000 ML IVC PRN ×2 (07:57→12:36)
[2021-03-27] MEDS ORDERED: *HR* Dextrose 50 % in Water (Vial) 50 ML VIAL IVP PRN ×2 (07:57→12:36)
[2021-03-27] MEDS ORDERED: Dextrose Gel 15 GM/37.5 ML TUBE PO PRN ×4 (07:57→12:36)
[2021-03-27] MEDS ORDERED: *HR* FentaNYL (PF) 100 MCG/2 ML VIAL ONE (09:08)
[2021-03-27] MEDS ORDERED: *HR* Propofol 200 MG/20 ML VIAL IVP ONE (09:08)
[2021-03-27] MEDS ORDERED: Lidocaine -MPF 2% 2 ML VIAL ONE (09:08)
[2021-03-27] MEDS ORDERED: Ondansetron 4 MG/2 ML VIAL ONE (09:08)
[2021-03-27] MEDS ORDERED: *HR* Rocuronium Bromide 50 MG/5 ML VIAL ONE (09:08)
[2021-03-27] MEDS ORDERED: *HR* Midazolam HCl 2 MG/2 ML VIAL ONE (09:08)
[2021-03-27] MEDS ORDERED: *HR* HYDROmorphone PF 0.5 MG/0.5 ML SYRINGE IVP PRN (09:23)
[2021-03-27] MEDS ORDERED: *HR* OxyCODONE Immed Rel 5 MG TABLET PO PRN (09:23)
[2021-03-27] MEDS ORDERED: Isovue-300 50ML VIAL ONE (09:23)
[2021-03-27] MEDS ORDERED: ceFAZolin 2,000 MG in 0.9 % Sodium Chloride 100 ML IVPB STA (09:25)
[2021-03-27] MEDS ORDERED: EPHEDrine 50 MG/ML VIAL ONE (10:30)
[2021-03-27] MEDS ORDERED: Sugammadex Sodium 200 MG/2 ML VIAL IV ONE (11:08)
[2021-03-27] MEDS ORDERED: *HR* Labetalol 20 MG/4 ML SYRINGE IVP STA ×2 (11:44→12:20)
[2021-03-27] MEDS ORDERED: Insulin LISPRO 300 UNITS/3 ML VIAL SUBQ SCH ×2 (12:00→18:00)
[2021-03-27] MEDS: Insulin DETEMIR 100 UNIT/ML X5UNITS SUBQ SCH (22:24)
[2021-03-28] MEDS ORDERED: Bisacodyl 10 MG RECTAL SUPPOSITORY RC PRN (07:49)
[2021-03-28] MEDS: Baclofen 10 MG TABLET PO SCH ×4 (08:44→20:08)
[2021-03-28] MEDS: Insulin LISPRO 300 UNITS/3 ML VIAL SUBQ SCH ×3 (08:44→16:14)
[2021-03-28] MEDS: tiZANidine 4 MG TABLET PO SCH ×3 (08:44→20:08)
[2021-03-28] MEDS ORDERED: (Miconazole Nitrate [Desenex] 43 GM Powder) TP SCH (09:00)
[2021-03-28] MEDS: Nystatin POWDER 30 GM BOTTLE TP SCH (20:08)
[2021-03-28] MEDS: Insulin DETEMIR 100 UNIT/ML X5UNITS SUBQ SCH (20:08)
[2021-03-28] MEDS: OLANZapine 5 MG TAB.RAPDIS PO SCH (20:08)
[2021-03-28] MEDS: Melatonin 3 MG TABLET PO SCH (20:08)
[2021-03-28] MEDS ORDERED: Insulin LISPRO 300 UNITS/3 ML VIAL SUBQ SCH (21:00)
[2021-03-29 03:38] LABS: BUN/Creatinine Ratio 20 (6-26); Blood Urea Nitrogen 26 mg/dL (6-20); Calcium 7.8 mg/dL (8.6-10.3); Carbon Dioxide 24 mEq/L (23-29); Chloride 98 mEq/L (98-107); Glucose 440 mg/dL (70-105); Magnesium 1.7 mg/dL (1.6-2.6); Osmolality,Calculated 292 (280-300); Phosphorous 2.6 mg/dL (2.7-4.5); Potassium 4.3 mEq/L (3.5-5.1); Sodium 129 mEq/L (136-145); eGFR For African Americans > 60 (> 60); eGFR For Non-African Americans 58 (> 60)
[2021-03-29 05:12] LABS: Hematocrit 35.3 % (37.5-50.1); Hemoglobin 11.2 g/dL (12.9-16.9); Mean Corpuscular HGB Conc 31.7 g/dL (31.6-35.5); Mean Corpuscular Hemoglobin 28.4 pg (28.0-33.3); Mean Corpuscular Volume 89.6 fL (83.0-100.0); Mean Platelet Volume 10.6 fL (9.4-12.4); Platelet Count 131 K/mcL (140-400); Red Blood Count 3.94 M/mcL (4.19-5.50); Red Cell Distribution Width 13.2 % (11.5-14.5); White Blood Count 8.4 K/mcL (4.3-11.1)
[2021-03-29] MEDS: Insulin LISPRO 300 UNITS/3 ML VIAL SUBQ SCH ×4 (08:14→20:47)
[2021-03-29] MEDS: tiZANidine 4 MG TABLET PO SCH ×3 (08:14→20:45)
[2021-03-29] MEDS: Baclofen 10 MG TABLET PO SCH ×4 (08:14→20:45)
[2021-03-29] MEDS: Nystatin POWDER 30 GM BOTTLE TP SCH ×2 (08:22→20:46)
[2021-03-29] MEDS: Melatonin 3 MG TABLET PO SCH (20:45)
[2021-03-29] MEDS: OLANZapine 5 MG TAB.RAPDIS PO SCH (20:46)
[2021-03-29] MEDS: Insulin DETEMIR 100 UNIT/ML X5UNITS SUBQ SCH (20:48)
[2021-03-30 04:54] LABS: BUN/Creatinine Ratio 19 (6-26); Blood Urea Nitrogen 27 mg/dL (6-20); Calcium 8.3 mg/dL (8.6-10.3); Carbon Dioxide 25 mEq/L (23-29); Chloride 99 mEq/L (98-107); Glucose 328 mg/dL (70-105); Osmolality,Calculated 292 (280-300); Potassium 3.9 mEq/L (3.5-5.1); Sodium 132 mEq/L (136-145); eGFR For African Americans > 60 (> 60); eGFR For Non-African Americans 51 (> 60)
[2021-03-30] MEDS: tiZANidine 4 MG TABLET PO SCH ×3 (08:25→20:35)
[2021-03-30] MEDS: Insulin LISPRO 300 UNITS/3 ML VIAL SUBQ SCH ×4 (08:25→20:36)
[2021-03-30] MEDS: Nystatin POWDER 30 GM BOTTLE TP SCH ×2 (08:25→20:37)
[2021-03-30] MEDS: Baclofen 10 MG TABLET PO SCH ×4 (08:25→20:36)
[2021-03-30] MEDS ORDERED: Perflutren Lipid Microsphere 1.3 ML in 0.9 % Sodium Chloride 8.7 ML IVP PRN (12:21)
[2021-03-30] MEDS: OLANZapine 5 MG TAB.RAPDIS PO SCH (20:35)
[2021-03-30] MEDS: Insulin DETEMIR 100 UNIT/ML X5UNITS SUBQ SCH (20:36)
[2021-03-30] MEDS: Melatonin 3 MG TABLET PO SCH (20:36)
[2021-03-31] MEDS: Insulin LISPRO 300 UNITS/3 ML VIAL SUBQ SCH ×4 (07:27→21:44)
[2021-03-31] MEDS: Baclofen 10 MG TABLET PO SCH ×4 (07:27→21:43)
[2021-03-31] MEDS: Nystatin POWDER 30 GM BOTTLE TP SCH ×2 (07:27→21:44)
[2021-03-31] MEDS: tiZANidine 4 MG TABLET PO SCH ×3 (07:27→21:43)
[2021-03-31] MEDS: *HR* Heparin 5,000 UNIT/ML VIAL SQ SCH ×2 (14:58→21:43)
[2021-03-31] MEDS: Insulin DETEMIR 100 UNIT/ML X5UNITS SUBQ SCH (21:43)
[2021-03-31] MEDS: OLANZapine 5 MG TAB.RAPDIS PO SCH (21:43)
[2021-03-31] MEDS: Melatonin 3 MG TABLET PO SCH (21:43)
[2021-04-01] MEDS: *HR* Heparin 5,000 UNIT/ML VIAL SQ SCH ×3 (05:47→20:06)
[2021-04-01] MEDS: Insulin LISPRO 300 UNITS/3 ML VIAL SUBQ SCH ×4 (07:37→19:56)
[2021-04-01] MEDS: Baclofen 10 MG TABLET PO SCH ×4 (07:38→19:58)
[2021-04-01] MEDS: Nystatin POWDER 30 GM BOTTLE TP SCH ×2 (07:38→19:59)
[2021-04-01] MEDS: tiZANidine 4 MG TABLET PO SCH ×3 (07:45→19:58)
[2021-04-01] MEDS: OLANZapine 5 MG TAB.RAPDIS PO SCH (19:58)
[2021-04-01] MEDS: Insulin DETEMIR 100 UNIT/ML X5UNITS SUBQ SCH (19:58)
[2021-04-01] MEDS: Melatonin 3 MG TABLET PO SCH (19:58)
[2021-04-02] MEDS: *HR* Heparin 5,000 UNIT/ML VIAL SQ SCH ×3 (05:37→20:17)
[2021-04-02 05:58] LABS: Basophils # 0.1 K/mcL (0.0-0.2); Eosinophils # 0.1 K/mcL (0.0-0.6); Eosinophils % 1.6 %; Hematocrit 35.3 % (37.5-50.1); Hemoglobin 11.4 g/dL (12.9-16.9); Immature Granulocytes % 4.4 % (0-4); Lymphocytes % 12.5 %; Mean Corpuscular HGB Conc 32.3 g/dL (31.6-35.5); Mean Corpuscular Hemoglobin 28.5 pg (28.0-33.3); Mean Corpuscular Volume 88.3 fL (83.0-100.0); Mean Platelet Volume 10.3 fL (9.4-12.4); Monocytes # 1.2 K/mcL (0.0-1.3); Monocytes % 14.8 %; Neutrophils # 5.2 K/mcL (1.6-8.9); Platelet Count 167 K/mcL (140-400); Segmented Neutrophils % 65.7 %; White Blood Count 7.9 K/mcL (4.3-11.1)
[2021-04-02 06:14] LABS: BUN/Creatinine Ratio 20 (6-26); Blood Urea Nitrogen 26 mg/dL (6-20); Calcium 8.3 mg/dL (8.6-10.3); Carbon Dioxide 23 mEq/L (23-29); Chloride 98 mEq/L (98-107); Glucose 377 mg/dL (70-105); Osmolality,Calculated 288 (280-300); Potassium 4.2 mEq/L (3.5-5.1); Sodium 129 mEq/L (136-145); eGFR For African Americans > 60 (> 60); eGFR For Non-African Americans 57 (> 60)
[2021-04-02] MEDS: Baclofen 10 MG TABLET PO SCH ×4 (08:11→20:16)
[2021-04-02] MEDS: Insulin LISPRO 300 UNITS/3 ML VIAL SUBQ SCH ×4 (08:11→20:17)
[2021-04-02] MEDS: tiZANidine 4 MG TABLET PO SCH ×3 (08:11→20:16)
[2021-04-02] MEDS: Nystatin POWDER 30 GM BOTTLE TP SCH ×2 (08:11→20:33)
[2021-04-02] MEDS: Insulin DETEMIR 100 UNIT/ML X5UNITS SUBQ SCH (20:15)
[2021-04-02] MEDS: Melatonin 3 MG TABLET PO SCH (20:16)
[2021-04-02] MEDS: OLANZapine 5 MG TAB.RAPDIS PO SCH (20:16)
[2021-04-03 02:55] LABS: BUN/Creatinine Ratio 20 (6-26); Blood Urea Nitrogen 24 mg/dL (6-20); Calcium 8.3 mg/dL (8.6-10.3); Carbon Dioxide 18 mEq/L (23-29); Chloride 99 mEq/L (98-107); Glucose 285 mg/dL (70-105); Osmolality,Calculated 282 (280-300); Potassium 4.4 mEq/L (3.5-5.1); Sodium 129 mEq/L (136-145); eGFR For African Americans > 60 (> 60); eGFR For Non-African Americans > 60 (> 60)
[2021-04-03] MEDS: *HR* Heparin 5,000 UNIT/ML VIAL SQ SCH (05:11)
[2021-04-03] MEDS: Baclofen 10 MG TABLET PO SCH ×2 (07:40→11:08)
[2021-04-03] MEDS: Nystatin POWDER 30 GM BOTTLE TP SCH (07:40)
[2021-04-03] MEDS: tiZANidine 4 MG TABLET PO SCH (07:40)
[2021-04-03] MEDS: Insulin LISPRO 300 UNITS/3 ML VIAL SUBQ SCH ×2 (07:41→11:08)
[2021-04-03] MEDS ORDERED: *HR* Metformin 500 MG TABLET PO SCH (08:00)
[2021-04-03] MEDS ORDERED: levoFLOXacin 750 MG/150 ML 750 MG/150 ML BAG IVPB SCH (09:00)
[2021-04-03 10:52] VITALS: BP 111/77
== END 2021-04-03 13:40 | DRG 659 ==
LOC: EMEROOARM 13:44 → 2NENU 13:44 → SUATTDRO 23:11 → 2NENU 03-27 00:10 → 2ANU 03-28 21:56 → SUATTDRO 03-30 17:06
PROVIDERS: ADMIT Family Medicine; ATTEND Internal Medicine